=== PATIENT | female | born 1965 | race Two or more races ===

== ENCOUNTER 2021-08-01 18:10 | Emergency (ER) | payer SELFPAY ==
[~2021-08-01] VITALS: Ht 165.1 cm; Wt 90.7 kg
[2021-08-01 18:12] VITALS: BP 138/78
== END 2021-08-01 20:06 | disposition left against medical advice (07) ==
LOC: ER 18:12
DX: S61.213A Laceration without foreign body of left middle finger without damage to nail, initial encounter (principal); Z53.21 Procedure and treatment not carried out due to patient leaving prior to being seen by health care provider; W54.0XXA Bitten by dog, initial encounter; Y93.89 Activity, other specified; Y92.89 Other specified places as the place of occurrence of the external cause; Y99.8 Other external cause status